=== PATIENT | female | born 1965 | race Caucasian/White ===

== ENCOUNTER 2018-12-14 20:50 | Emergency (ER) | payer OTHER ==
[~2018-12-14] VITALS: Ht 157.5 cm; Wt 70.0 kg
[2018-12-14 21:17] VITALS: Ht 157.5 cm; Wt 70.0 kg
[2018-12-14] MEDS ORDERED: SOD CHLORIDE 0.9% 1,000 ML IV STA (21:23)
[2018-12-14] MEDS ORDERED: ONDANSETRON 4 MG INJ IV STA (21:23)
--- NOTE | 2018-12-14 22:21 | ERD ---
ER Documentation Chief Complaint Chief Complaint C/O GENERALIZED AP W/ NAUSEA SINCE TODAY HPI 53-year-old woman complains of diffuse abdominal cramping and nausea after eating an egg, she is status post gastric sleeve surgery about a year ago and is lost over 100 pounds. She states she has had similar abdominal cramping in the past usually after eating although not as severe as today. She denies recent fevers or chills, no diarrhea, no chest pain or shortness of breath. Patient had one episode of clear ROS All systems reviewed and are negative except as per history of present illness. Medications Home Meds No Active Prescriptions or Reported Meds Allergies Allergies: Coded Allergies: No Known Allergy (Unverified , 09/07/12) PMhx/Soc Gastric sleeve surgery Medical and Surgical Hx: pt denies Medical Hx History of Surgery: Yes (gastric bypass) Anesthesia Reaction: No Hx Neurological Disorder: No Hx Respiratory Disorders: No Hx Cardiac Disorders: No Hx Psychiatric Problems: No Hx Miscellaneous Medical Probl: No Hx Alcohol Use: No Hx Substance Use: Yes Hx Tobacco Use: No Smoking Status: Current every day smoker FmHx Family History: No diabetes Physical Exam Vitals Vital Signs Date Temp Pulse Resp B/P (MAP) Pulse Ox O2 O2 Flow FiO2 Time Delivery Rate 12/14/18 98.6 63 19 130/76 100 21:17 (94) Physical Exam GENERAL: Well-developed, well-nourished, well-hydrated, in no apparent distress, looks nontoxic in appearance HEENT: Moist mucous membranes, pink conjunctiva, no cervical spine tenderness or step-off deformities, no goiter, no jaundice or icterus, extraocular movements intact without pain. No submandibular induration, and no pharyngeal erythema NEURO: Alert and oriented 3, cranial nerves II through XII intact bilaterally, pupils equal round reactive to light, no focal deficits or facial asymmetry, sensation intact distally Strength 5/5 in upper and lower extremities bilaterally CARDIAC: Regular rate and rhythm, no murmurs rubs or gallops LUNGS: Clear bilaterally no wheezing crackles or stridor ABDOMEN: Soft nontender, no guarding, no rigidity, no rebound, no psoas sign no obturator sign. Normoactive bowel sounds SKIN: Warm and dry to touch, no abrasions, contusions, or hematomas, no lacerations, no ecchymosis, no target lesions, and without ulcers EXTREMITIES: No clubbing cyanosis or edema, calves are bilaterally symmetrical, no Homans sign, no popliteal cord sign. Distal pulses equal and bilateral PSYCH: Normal affect without agitation or irritability Result Diagram: 12/14/18213212/14/182132 Results 24 hrs Laboratory Tests Test 12/14/18 21:33 White Blood Count 7.7 10^3/ul Red Blood Count 4.50 10^6/ul Hemoglobin 13.4 g/dl Hematocrit 41.0 % Mean Corpuscular Volume 91.1 fl Mean Corpuscular Hemoglobin 29.8 pg Mean Corpuscular Hemoglobin Concent 32.7 g/dl Red Cell Distribution Width 13.4 % Platelet Count 318 10^3/UL Mean Platelet Volume 9.1 fl Immature Granulocytes % 0.300 % Neutrophils % 47.6 % Lymphocytes % 43.2 % Monocytes % 5.6 % Eosinophils % 2.7 % Basophils % 0.6 % Nucleated Red Blood Cells % 0.0 /100WBC Immature Granulocytes # 0.020 10^3/ul Neutrophils # 3.7 10^3/ul Lymphocytes # 3.3 10^3/ul Monocytes # 0.4 10^3/ul Eosinophils # 0.2 10^3/ul Basophils # 0.1 10^3/ul Nucleated Red Blood Cells # 0.0 10^3/ul Urine Color STRAW Urine Clarity CLEAR Urine pH 5.0 Urine Specific Una 1.005 Urine Ketones NEGATIVE mg/dL Urine Nitrite NEGATIVE mg/dL Urine Bilirubin NEGATIVE mg/dL Urine Urobilinogen NEGATIVE mg/dL Urine Leukocyte Esterase 1+ Mckenna/ul Urine Microscopic RBC 0 /HPF Urine Microscopic WBC 0 /HPF Urine Bacteria FEW /HPF Urine Hemoglobin NEGATIVE mg/dL Urine Glucose NEGATIVE mg/dL Urine Total Protein NEGATIVE mg/dl Sodium Level 141 mmol/L Potassium Level 3.6 mmol/L Chloride Level 103 mmol/L Carbon Dioxide Level 31 mmol/L Anion Gap 7 Blood Urea Nitrogen 13 mg/dl Creatinine 0.66 mg/dl Est Glomerular Filtrat Rate mL/min > 60 mL/min Glucose Level 95 mg/dl Calcium Level 9.6 mg/dl Total Bilirubin 0.6 mg/dl Direct Bilirubin 0.00 mg/dl Indirect Bilirubin 0.6 mg/dl Aspartate Amino Transf (AST/SGOT) 28 IU/L Alanine Aminotransferase (ALT/SGPT) 27 IU/L Alkaline Phosphatase 67 IU/L Troponin I < 0.012 ng/ml Total Protein 7.7 g/dl Albumin 4.3 g/dl Globulin 3.40 g/dl Albumin/Globulin Ratio 1.26 Lipase 96 U/L Current Medications Medications Dose Sig/Kayla Start Time Status Last (Trade) Ordered Route PRN Stop Time Admin Dose Reason Admin Sodium 1,000 ml @ Q1H STAT 12/14/18 DC 12/14/18 Chloride 1,000 mls/hr IV 21:23 21:37 12/14/18 22:22 Ondansetron 4 mg ONCE STAT 12/14/18 DC 12/14/18 HCl (Zofran IV 21:23 21:37 Inj) 12/14/18 21:24 40 ml ONCE STAT 12/14/18 DC 12/14/18 Miscellaneous PO 23:04 23:20 Medication 12/14/18 23:05 (Gi Cocktail (2)) Belladonna/ 2 tab ONCE STAT 12/14/18 DC 12/14/18 Phenobarbital PO 23:04 23:20 () 12/14/18 23:05 Ketorolac 15 mg ONCE STAT 12/14/18 DC 12/14/18 Tromethamine IV 23:04 23:20 (Toradol) 12/14/18 23:05 Ondansetron 4 mg ONCE STAT 12/15/18 DC HCl (Zofran IV 01:34 Inj) 12/15/18 01:35 Procedures/MDM IV line was established patient was placed on hall monitor rhythm strip revealed a sinus rhythm at about 60 bpm with upright P and T waves. Patient was afebrile EKG performed, read by me: 63 bpm, normal sinus rhythm, normal axis, no acute ST segment changes, narrow QRS complex, with good R-wave progression in precordial leads. I administered 1 L normal saline IV, Toradol 15 mg IV, Zofran 4 mg IV, GI cocktail p.o. CBC and electrolytes are normal, liver function tests were normal, troponin was negative, urinalysis positive for infection. CT scan of the abdomen and pelvis was performed revealing partial bowel obstruction. Patient had another episode of vomiting while in the ED and I treated her here with another round of Zofran 4 mg IV x1. I spoke to on-call surgeon who agreed to consult the patient in the morning. Patient is resting comfortably and appears well but given her vomiting and CT scan findings she will be admitted for continued medical management and surgical consultation, I will defer NG tube placement at this time given her overall clinical condition Patient will be admitted to her health insurance directed physician Departure Diagnosis: Primary Impression: Abdominal pain Abdominal location: generalized Qualified Codes: R10.84 - Generalized abdominal pain Additional Impressions: Vomiting Vomiting type: unspecified Vomiting Intractability: non-intractable Nausea presence: with nausea Qualified Codes: R11.2 - Nausea with vomiting, unspecified Acute UTI Partial bowel obstruction Intestinal obstruction type: unspecified Qualified Codes: K56.600 - Partial intestinal obstruction, unspecified as to cause Condition: TONI Mcdaniel MD Dec 14, 2018 22:21
[2018-12-14] MEDS ORDERED: KETOROLAC 15 MG INJ IV STA (23:04)
[2018-12-14] MEDS ORDERED: LIDOCAINE/MYLANTA 40 ML BTL PO STA (23:04)
[2018-12-14] MEDS ORDERED: BELLADONNA/PHENOBARBITAL TAB PO STA (23:04)
[2018-12-15] MEDS ORDERED: ONDANSETRON 4 MG INJ IV STA ×2 (01:34→06:19)
[2018-12-15 06:26] VITALS: BP 118/62; PULSE 76; RESP 16
== END 2018-12-15 06:27 | disposition home or self-care (01) ==
LOC: E/R 20:50
DX: N39.0 Urinary tract infection, site not specified (principal); K56.600 Partial intestinal obstruction, unspecified as to cause; F17.210 Nicotine dependence, cigarettes, uncomplicated
CPT/HCPCS: 36415; 74176; 80053; 81001; 83690; 84484; 85025; 93005; 96374; 96375; 96376; J1885; J2405; J7030; Z7502; Z7610